=== PATIENT | female | born 1975 | race African-American/Black ===

== ENCOUNTER 2018-11-22 05:01 | Emergency (ER) | payer MEDICAID ==
[~2018-11-22] VITALS: Ht 172.7 cm; Wt 91.0 kg
[2018-11-22] MEDS ORDERED: HYDROCODONE/ACETAMINOPHEN 5/325MG TABLET PO ONE (06:30)
[2018-11-22 08:02] VITALS: BP 155/99
== END 2018-11-22 08:04 | disposition home or self-care (01) ==
LOC: ER 05:01
DX: S09.8XXA Other specified injuries of head, initial encounter (principal); S01.85XA Open bite of other part of head, initial encounter; Y04.2XXA Assault by strike against or bumped into by another person, initial encounter; S41.152A Open bite of left upper arm, initial encounter; Y04.1XXA Assault by human bite, initial encounter; Y07.03 Male partner, perpetrator of maltreatment and neglect; Y93.89 Activity, other specified; R03.0 Elevated blood-pressure reading, without diagnosis of hypertension; Y92.098 Other place in other non-institutional residence as the place of occurrence of the external cause
CPT/HCPCS: 70486; 81025; 99284

== ENCOUNTER 2018-12-23 17:24 | Emergency (ER) | payer MEDICAID ==
[~2018-12-23] VITALS: Ht 157.5 cm; Wt 86.0 kg
[2018-12-23 18:04] VITALS: BP 159/91
== END 2018-12-23 20:36 | disposition left against medical advice (07) ==
LOC: ER 17:24
DX: Z53.21 Procedure and treatment not carried out due to patient leaving prior to being seen by health care provider (principal)